=== PATIENT | male | born 1980 | race Caucasian/White ===

== ENCOUNTER 2017-10-20 14:19 | Emergency (ER) | payer OTHER ==
[2017-10-20 14:52] VITALS: RESP 18; TEMP 97.8
--- NOTE | 2017-10-20 15:05 | XR ---
EXAMINATION TYPE: XR finger RT DATE OF EXAM: 10/20/2017 COMPARISON: NONE HISTORY: Contusion injury with pain. TECHNIQUE: 3 views of right third digit are obtained. FINDINGS: No acute fracture or dislocation is evident. Joint spaces are preserved. Overlying soft tis jennyfer is unremarkable. IMPRESSION: No acute fracture or dislocation in third digit of right hand.
[2017-10-20] MEDS ORDERED: DIPH,PERTUS(ACELL)TETVAC-LF 0.5 ML VIAL IM ONE (16:31)
--- NOTE | 2017-10-20 17:08 | ED ---
General Adult HPI - General Chief complaint: Wound/Laceration Stated complaint: [facility] Rt middle finger lac Time Seen by Provider: 10/20/17 15:40 Source: patient, RN notes reviewed Mode of arrival: ambulatory Limitations: no limitations - History of Present Illness Initial comments: 36-year-old male presents to the emergency department for a chief complaint of laceration to the right third digit. Patient states he was at work when he accidentally hit his hand against a piece of metal. Patient works in a car shop. Patient states this happened about 2 hours ago. Patient states it didn' t hurt when it happened but it did bleed. Patient states he has full range of motion of that finger but it hurts. Patient denies any pain in the hand or wrist. He denies any other injuries. Patient has no other complaints at this time including shortness of breath or chest pain. - Related Data Allergies Allergy/AdvReac Type Severity Reaction Status Date / Time No Known Allergies Allergy Verified 10/20/17 14:53 Review of Systems ROS Statement: Those systems with pertinent positive or pertinent negative responses have been documented in the HPI. ROS Other: All systems not noted in ROS Statement are negative. Past Medical History Past Medical History: No Reported History History of Any Multi-Drug Resistant Organisms: None Reported Past Surgical History: Orthopedic Surgery Additional Past Surgical History / Comment(s): Left knee Past Psychological History: No Psychological Hx Reported Smoking Status: Former smoker Past Alcohol Use History: None Reported Past Drug Use History: None Reported General Exam Limitations: no limitations Respiratory exam: Present: normal lung sounds bilaterally. Absent: respiratory distress, wheezes, rales, rhonchi, stridor Cardiovascular Exam: Present: regular rate, normal rhythm, normal heart sounds. Absent: systolic murmur, diastolic murmur, rubs, gallop, clicks Extremities exam: Present: normal inspection, full ROM, tenderness (To the right third digit.), normal capillary refill (Less than 2 seconds in the right hand.), other (There is a 1.5 laceration across the PIP joint dorsal aspect of the third digit of the right hand. No signs of infection.). Absent: pedal edema, joint swelling, calf tenderness Course Vital Signs 10/20/17 10/20/17 14:50 17:20 Temperature 97.8 F Pulse Rate 72 64 Respiratory 18 18 Rate Blood Pressure 199/107 182/91 O2 Sat by Pulse 98 95 Oximetry Procedures - Procedures Initial comment: Body area: Distal aspect of the PIP joint of the third digit of the right hand Laceration length:1.5 cm Foreign bodies: no foreign bodies Tendon involvement: none Nerve involvement: none Vascular damage: no Anesthesia: local infiltration Local anesthetic: 3 mL 1% lidocaine Preparation: Patient was prepped and draped in the usual sterile fashion. Irrigation solution: saline Irrigation method:sterile water jet lavage Skin closure:5-0 Ethilon using sterile technique Number of sutures:4 Technique: interupted Dressing: antibiotic ointment/ gauze Patient tolerance: Patient tolerated the procedure well with no immediate complications. Medical Decision Making - Medical Decision Making 36-year-old male presents to the emergency department for laceration of the third digit. This happened at work about 2 hours ago when he hit it against the submental. Patient has full range of motion in the finger and capillary refill less than 2 seconds. Neurovascular intact. X-ray demonstrates no acute fractures or dislocations. Wound was cleaned and 4 sutures were applied. He was given a tetanus shot in the emergency department. He is to return to the emergency department if he notices signs of infection or worsening symptoms. Otherwise will follow up with primary care provider. He will return in 10 days for suture removal. Disposition Clinical Impression: Laceration Disposition: HOME SELF-CARE Condition: Good Instructions: Care For Your Stitches (ED), Laceration (ED) Additional Instructions: Please return to the emergency department if he notices any signs of infection or worsening symptoms. Otherwise follow-up with primary care provider in one to 2 days. Referrals: Dagoberto Fowler MD [Primary Care Provider] - 1-2 days Time of Disposition: 17:08
[2017-10-20 17:37] VITALS: BP 182/91; PULSE 64
== END 2017-10-20 17:20 | disposition home or self-care (01) ==
LOC: EC 14:19
DX: S61.212A Laceration without foreign body of right middle finger without damage to nail, initial encounter (principal); Z87.891 Personal history of nicotine dependence; Z02.9 Encounter for administrative examinations, unspecified; Z23 Encounter for immunization; W22.8XXA Striking against or struck by other objects, initial encounter; Y93.89 Activity, other specified; Y92.513 Shop (commercial) as the place of occurrence of the external cause
CPT/HCPCS: 12001; 90471; 90715; 99283